=== PATIENT | male | born 1945 | race Caucasian/White ===

== ENCOUNTER 2017-10-26 15:12 | Observation (INO) | payer OTHER ==
[~2017-10-26] VITALS: Ht 172.7 cm; Wt 84.3 kg
[2017-10-26 15:59] LABS: HEMATOCRIT 44.8 % (38.0-50.0); MCH 33.4 PG (29.0-34.0); MCHC 35.7 G/DL (30.0-36.0); MCV 93.5 FL (86-99); MEAN PLAT.VOLUME 9.6 uM^3 (9.0-12.4); PLATELET COUNT 202 K/uL (156-360); RBC DIS.WIDTH-CV 13.1 % (11.8-14.6); RBC DIS.WIDTH-SD 44.8 % (39-53); RED BLOOD COUNT 4.79 M/uL (4.00-5.50); WHITE BLOOD COUNT 10.5 K/uL (4.1-10.2)
[2017-10-26 16:06] LABS: CHLORIDE 98 mEq/L (99-109); POTASSIUM 3.9 mEq/L (3.7-5.4); SODIUM 135 mEq/L (136-147)
[2017-10-26 16:08] LABS: GLUCOSE 110 mg/dL (70-99)
[2017-10-26 16:10] LABS: ANION GAP 13 MEQ/L (2-14)
[2017-10-26 16:12] LABS: GFR ESTIMATE (CALCULATED) > 59 mL/min/ (58.99-99999)
[2017-10-26 16:13] LABS: UREA NITROGEN (BUN) 13 mg/dL (9-23)
[2017-10-26 16:20] LABS: TROP-I INTERPRETATION NEGATIVE; TROPONIN-I < 0.01 ng/mL (0.0-0.30)
[2017-10-26] MEDS ORDERED: FENOFIBRATE145 M1 PO (18:46)
[2017-10-26] MEDS ORDERED: LISINOPRIL10 MG PO (18:46)
[2017-10-26] MEDS ORDERED: FISH OIL 1,0001 EAC7 PO (18:47)
[2017-10-26] MEDS ORDERED: ATORVASTATIN CA20 MG PO (18:47)
[2017-10-26 21:37] VITALS: BP 126/76
[2017-10-26 22:18] LABS: TROP-I INTERPRETATION NEGATIVE; TROPONIN-I < 0.01 ng/mL (0.0-0.30)
[2017-10-27 04:50] LABS: CHLORIDE 97 mEq/L (99-109); HEMATOCRIT 38.9 % (38.0-50.0); MCH 32.8 PG (29.0-34.0); MCV 93.7 FL (86-99); MEAN PLAT.VOLUME 9.4 uM^3 (9.0-12.4); PLATELET COUNT 155 K/uL (156-360); POTASSIUM 3.7 mEq/L (3.7-5.4); RBC DIS.WIDTH-CV 13.2 % (11.8-14.6); RBC DIS.WIDTH-SD 45.3 % (39-53); RED BLOOD COUNT 4.15 M/uL (4.00-5.50); SODIUM 133 mEq/L (136-147); WHITE BLOOD COUNT 10.6 K/uL (4.1-10.2)
[2017-10-27 04:52] LABS: GLUCOSE 107 mg/dL (70-99)
[2017-10-27 04:54] LABS: ANION GAP 11 MEQ/L (2-14)
[2017-10-27 04:56] LABS: GFR ESTIMATE (CALCULATED) > 59 mL/min/ (58.99-99999)
[2017-10-27 04:57] LABS: UREA NITROGEN (BUN) 13 mg/dL (9-23)
[2017-10-27 05:08] LABS: TROP-I INTERPRETATION NEGATIVE; TROPONIN-I 0.02 ng/mL (0.0-0.30)
[2017-10-27 05:28] VITALS: BP 104/59
[2017-10-27 06:55] VITALS: BP 117/71
[2017-10-27 11:18] VITALS: BP 106/58
[2017-10-27 15:28] VITALS: BP 111/60
[2017-10-27 18:37] VITALS: BP 98/56
[2017-10-27 23:31] VITALS: BP 113/70
[2017-10-28 04:15] VITALS: BP 110/61
[2017-10-28 05:32] LABS: EOSINOPHIL (%) 0.1 % (0-5); HEMATOCRIT 38.8 % (38.0-50.0); IMMATURE GRANULOCYTE (%) 0.5 % (0.0-0.7); IMMATURE GRANULOCYTE COUNT 0.1 K/uL; INSTRUMENT ABS NEUTROPHIL CT 9.3 K/uL; LYMPHOCYTE COUNT 1.7 K/uL (1.0-2.8); MCH 32.4 PG (29.0-34.0); MCV 95.3 FL (86-99); MEAN PLAT.VOLUME 9.4 uM^3 (9.0-12.4); MONOCYTE (%) 8.9 % (3-12); MONOCYTE COUNT 1.1 K/uL (0-0.8); NEUTROPHIL (%) 76.5 % (45-76); NEUTROPHIL COUNT 9.3 K/uL (1.8-6.4); PLATELET COUNT 163 K/uL (156-360); RBC DIS.WIDTH-CV 13.1 % (11.8-14.6); RBC DIS.WIDTH-SD 46.2 % (39-53); RED BLOOD COUNT 4.07 M/uL (4.00-5.50); WHITE BLOOD COUNT 12.1 K/uL (4.1-10.2)
[2017-10-28 05:58] LABS: ANION GAP 7 MEQ/L (2-14); CHLORIDE 99 MEQ/L (99-109); GFR ESTIMATE (CALCULATED) > 59 mL/min/ (58.99-99999); GLUCOSE 93 mg/dL (70-99); SAMPLE HEMOLYSIS CHECK 0; SAMPLE ICTERIC CHECK 0; SAMPLE LIPEMIA CHECK 0; SODIUM 135 MEQ/L (136-147); UREA NITROGEN (BUN) 17 mg/dL (9-23)
[2017-10-28 07:44] VITALS: BP 108/92
[2017-10-28] MEDS ORDERED: VENTOLIN HFA18 GM IH (10:36)
[2017-10-28] MEDS ORDERED: SPIRIVA RESPIMAT4 GM IH (10:36)
[2017-10-28] MEDS ORDERED: ASPIR-LOW81 MG PO (10:37)
[2017-10-28] MEDS ORDERED: PREDNISONE10 MG PO (10:38)
== END 2017-10-28 13:27 | disposition home or self-care (01) ==
LOC: EME 15:12 → EDOF 20:29 → ENRESERV 20:35 → 5WEST 21:25 → ENPENDDIS 10-28 → 5WEST 10-28 13:27
PROVIDERS: Physician Assistant Medical; Student in an Organized Health Care Education/Training Program
DX: J20.9 Acute bronchitis, unspecified (principal); R07.9 Chest pain, unspecified; J43.9 Emphysema, unspecified; F17.210 Nicotine dependence, cigarettes, uncomplicated; D72.829 Elevated white blood cell count, unspecified; T38.0X5A Adverse effect of glucocorticoids and synthetic analogues, initial encounter; E87.1 Hypo-osmolality and hyponatremia; Z79.52 Long term (current) use of systemic steroids; I10 Essential (primary) hypertension; E78.5 Hyperlipidemia, unspecified; Z79.82 Long term (current) use of aspirin
CPT/HCPCS: 71020; 71275; 80048; 84484; 85025; 85027; 85379; 93005; 94640; 94640 76; 99202; 99281; 99285; G0378; J1650; J7512

== ENCOUNTER 2018-03-10 23:08 | Observation (INO) | payer OTHER ==
[~2018-03-10] VITALS: Ht 175.3 cm; Wt 96.5 kg
[~2018-03-10 23:08] MED LIST: ASPIR-LOW81 MG PO; ATORVASTATIN CA20 MG PO; FENOFIBRATE145 M1 PO; FISH OIL 1,0001 EAC7 PO; LISINOPRIL10 MG PO; PREDNISONE10 MG PO; SPIRIVA RESPIMAT4 GM IH; VENTOLIN HFA18 GM IH
[2018-03-10 23:31] LABS: HEMATOCRIT 38.8 % (38.0-50.0); HEMOGLOBIN 13.5 G/DL (12.5-16.6); MCH 33.1 PG (29.0-34.0); MCHC 34.8 G/DL (30.0-36.0); MCV 95.1 FL (86-99); PLATELET COUNT 205 K/uL (156-360); RBC DIS.WIDTH-CV 13.2 % (11.8-14.6); RBC DIS.WIDTH-SD 46.5 % (39-53); RED BLOOD COUNT 4.08 M/uL (4.00-5.50)
[2018-03-10 23:53] LABS: CHLORIDE 96 MEQ/L (99-109); POTASSIUM 3.4 MEQ/L (3.7-5.4); SODIUM 133 MEQ/L (136-147)
[2018-03-10 23:59] LABS: CREATININE 1.2 MG/DL (0.6-1.3); GFR ESTIMATE (CALCULATED) > 59 mL/min/ (58.99-99999); GLUCOSE 114 mg/dL (70-99); UREA NITROGEN (BUN) 18 mg/dL (9-23)
[2018-03-11 00:03] LABS: TROP-I INTERPRETATION NEGATIVE; TROPONIN-I < 0.01 ng/mL (0.0-0.30)
[2018-03-11 01:25] LABS: BASE EXCESS 0.1 mEq/L (-3 to +3); BICARBONATE 23.8 mEq/L (22-26); CARBOXY HGB 1.5 % (0-5); COMMENTS - BLOOD GASES C+; DEVICE RA; METHEMOGLOBIN 1.1 % (0-1.5); PCO2 35 mm Hg (35-45); PO2 79 mm Hg (80-100); SITE RR; pH 7.44 (7.35-7.45)
[2018-03-11 03:40] LABS: ALBUMIN 4.1 G/DL (3.2-4.8); ALKALINE PHOSPHATASE 36 IU/L (3-129); ALT (GPT) 40 IU/L (3-49); AST (GOT) 55 IU/L (2-34); DIRECT BILIRUBIN 0.1 mg/dL (0.0-0.3); TOTAL BILIRUBIN 0.4 MG/DL (0.0-1.0); TOTAL PROTEIN 6.7 G/DL (6.4-8.3)
[2018-03-11 03:54] LABS: LIPASE 47 U/L (1.0-51.0)
[2018-03-11 07:05] VITALS: BP 126/67
[2018-03-11 11:45] LABS: CHLORIDE 94 MEQ/L (99-109); CREATININE 1.2 MG/DL (0.6-1.3); GFR ESTIMATE (CALCULATED) > 59 mL/min/ (58.99-99999); SODIUM 133 MEQ/L (136-147); UREA NITROGEN (BUN) 18 mg/dL (9-23)
[2018-03-11 11:46] VITALS: BP 138/75
[2018-03-11 11:48] LABS: GLUCOSE 198 mg/dL (70-99); POTASSIUM 4.1 MEQ/L (3.7-5.4)
[2018-03-11 16:16] VITALS: BP 131/71
[2018-03-12 00:05] VITALS: BP 98/56
[2018-03-12 00:35] VITALS: BP 120/78
[2018-03-12 04:11] VITALS: BP 116/62
[2018-03-12] MEDS ORDERED: AZITHROMYCIN500 M1 PO (08:43)
[2018-03-12] MEDS ORDERED: PREDNISONE10 MG PO (08:48)
[2018-03-12 08:50] VITALS: BP 131/60
== END 2018-03-12 10:58 | disposition home or self-care (01) ==
LOC: EME 23:08 → 4SOUTH 03-11 02:38 → EDOF 03-11 02:38 → ENRESERV 03-11 02:41 → 4SOUTH 03-11 03:24
PROVIDERS: Emergency Medicine; Hospitalist; Nurse Practitioner Adult Health
DX: J44.1 Chronic obstructive pulmonary disease with (acute) exacerbation (principal); E87.6 Hypokalemia; E87.1 Hypo-osmolality and hyponatremia; R60.0 Localized edema; R00.0 Tachycardia, unspecified; I10 Essential (primary) hypertension; E78.5 Hyperlipidemia, unspecified; Z87.891 Personal history of nicotine dependence; Z80.52 Family history of malignant neoplasm of bladder
CPT/HCPCS: 36600; 71046; 71275; 80048; 80076; 82803; 83690; 83880; 84484; 85027; 85379; 93005; 93970; 94640; 94640 76; 99202; 99281; 99285; G0378; J1650; J2060; J2930